=== PATIENT | male | born 1995 | race Caucasian/White ===

== ENCOUNTER 2017-05-18 13:29 | Emergency (ER) | payer BC ==
[~2017-05-18] VITALS: Ht 172.7 cm; Wt 68.0 kg
[2017-05-18 13:35] VITALS: BP_SYST 110
[2017-05-18 13:45] VITALS: BP_SYST 110
== END 2017-05-18 13:45 | disposition home or self-care (01) ==
LOC: SED 13:29
DX: J20.9 Acute bronchitis, unspecified (principal); Z88.8 Allergy status to other drugs, medicaments and biological substances; Z88.5 Allergy status to narcotic agent; Z88.1 Allergy status to other antibiotic agents
CPT/HCPCS: 71010; 71020-TC; 99284